=== PATIENT | female | born 1960 | race Caucasian/White ===

== ENCOUNTER 2019-04-11 21:19 | Inpatient (IN) | payer BC ==
--- NOTE | 2019-04-11 22:42 | PDOC ---
History of Present Illness - General Stated Complaint: PAIN Time Seen by Provider: 04/11/19 21:25 - History of Present Illness Initial Comments: Mikayla Morfin is a 58yo woman with a PMH of HTN, HLD, hypothyroidism, chronic back pain and sciatica, s/p multiple right knee and foot surgeries this spring ( December and January) who presents with severe cramping pains in her anterior right thigh, medial right thigh, and sciatica down her right lateral leg. She states that she had just been given permission to start full weight bearing by her orthopedic surgeon recently, and she has been trying to walk around the house as much as possible. She has not yet been able to start physical therapy. Yesterday, she started having muscle cramps in her anterior thigh and low back but tried to work through them. She took her usual oxycodone (extended release BID and immediate release Q4h), ibuprofen 800 and flexeril 7.5 with only slight improvement. Shortly afterwards, she noticed that her sciatica was "acting up" and she started having shooting pain down the lateral right leg. None of her usual home medications improved the pain significantly, and she says that it is so severe that it feels as though her leg is broken. She was unable to bear the pain anymore and presented to the ED for evaluation. She states that since arriving in the ED, she was trying to walk and pulled a muscle in the right groin; she now also has cramping pains down the medial right thigh as well. Ms Morfin states that she has been on the oxycodone sinec December, following her surgeries, and recently started the ibuprofen. She additionally takes flexeril and lyrica at home for pain. These have not helped over the past day. Despite the pain, she has been able to bear weight fully over the past day and has ambulated to the bathroom. She currently says that she is unable to move her leg because of pain. She denies any fall or injury prior to the onset of the muscle cramps. Before the pain started 2 days ago, she had been feeling in her normal state of marcia and denies any fevers, chills, injury, difficulty with voiding or bowel movements, numbness, or focal neurological symptoms. Past History - Past Medical History Allergies/Adverse Reactions: Allergies Allergy/AdvReac Type Severity Reaction Status Date / Time No Known Allergies Allergy Verified 04/11/19 23:06 Home Medications: Ambulatory Orders Levothyroxine [Synthroid -] 50 mcg PO DAILY 01/15/13 Simvastatin [Zocor -] 20 mg PO HS 01/15/13 Valsartan [Diovan] 160 mg PO DAILY 01/15/13 Pregabalin [Lyrica] 100 mg PO BID 03/05/14 Calcium Carb/Vitamin D3/Vit K1 [Calcium + D Soft Chewable Tab] 1 each PO DAILY 04/11/19 Cyanocobalamin/Folic AC/Vit B6 [Folbic Tablet] 1 each PO DAILY 04/11/19 Cyclobenzaprine HCl 10 mg PO PRN PRN 04/11/19 Ibuprofen/Famotidine [Duexis 800-26.6 mg Tablet] 1 each PO TID 04/11/19 Multivit with Minerals/Lutein [Pub Senior Vitamin Tablet] 1 each PO BID Oxycodone HCl 10 mg PO QID 04/11/19 Oxycodone Myristate [Xtampza ER] 18 mg PO BID 04/11/19 HTN: Yes Hypercholesterolemia: Yes Thyroid Disease: Yes (HYPO) - Suicide/Smoking/Psychosocial Hx Smoking Status: No Smoking History: Never smoked Have you smoked in the past 12 months: No Number of Cigarettes Smoked Daily: 0 Information on smoking cessation initiated: No Hx Alcohol Use: No Drug/Substance Use Hx: No Review of Systems - Review of Systems Comments:: General: No fevers, no chills, no weight or appetite change, no malaise HEENT: No changes in vision, no changes in hearing, no congestion, no sore throat CV: No chest pain, no palpitations, no LE edema Pulm: No SOB, no cough, no wheezing GI: No nausea or vomiting, no change in bowel habits, no melena : No frequency, no urgency, no dysuria Musc: See HPI Skin: No rash, no lesions, no erythema Endo: No excessive thirst, no heat/cold intolerance Heme: No unusual bruising or bleeding, no swollen glands Neuro: No syncope, no numbness/tingling, no focal weakness Vasc: No claudication Psych: No recent change in mood, no SI or HI *Physical Exam - Vital Signs Last Vital Signs Temp Pulse Resp BP Pulse Ox 99 F 64 19 155/79 100 04/11/19 21:35 04/11/19 21:35 04/11/19 21:35 04/11/19 21:35 04/11/19 21:35 - Physical Exam Comments: General: Comfortable, no acute distress HEENT: PERRL, EOMI, MMM, voice normal, normal neck ROM, no LAD Cards: RRR, no murmur appreciated Pulm: Comfortable on room air, clear to auscultation bilaterally Abd: Soft, nontender, nondistended Ext: Atraumatic. No pitting LE edema. Able to move b/l toes and ankles. Refuses to move legs at hip or knee due to pain. Well-healed surgical scars on her rt knee and Rt foot Vasc: Extremities WWP. Palpable radial and pedal pulses bilaterally Skin: Normal color, no rashes or lesions Neuro: A&Ox3, CN grossly intact, normal speech, sensory grossly intact and symmetric Psych: Mood appropriate to situation ED Treatment Course - LABORATORY CBC & Chemistry Diagram: 04/12/19 00:05 04/12/19 00:05 Medical Decision Making - Medical Decision Making 04/11/19 22:34 Mikayla Morfin is a 58yo woman with a PMH of HTN, HLD, hypothyroidism, chronic back pain and sciatica, s/p multiple right knee and foot surgeries this spring ( December and January), recently started walking and weight bearing, who presents with severe cramping pains in her anterior right thigh, medial right thigh, and sciatica down her right lateral leg that have not been improved by her home pain medications. She has been able to ambulate with difficulty. - Pt reports already taking a significant amount of pain medication at home - Will review pt's home medications - No injury, able to bear weight. No plans for imaging currently 04/11/19 23:13 - Pt's prescription history obtained by Dr Henry. Pt had recent prescriptions sent by a pain specialist. - Discussed goals of care w/ the entire ED team and patient. As she sees pain management, cannot give additional narcotic medications. Ms Morfin state understanding, willing to try non-narcotic medications. Unable to attempt ambulation currently due to pain - Reports recent swelling in her legs following surgery. Has not been on any anticoagulant. Will duplex BLE to evaluate for DVT - CBC, CMP for possible admission 04/12/19 00:34 - Signed out to Dr Jennings for the remainder of her ED care. Seen and discussed with Marily Henry and Collins. Louisa Esteban PGY2 *DC/Admit/Observation/Transfer Diagnosis at time of Disposition: Sciatica of right side Leg pain Qualifiers: Laterality: right Qualified Code(s): M79.604 - Pain in right leg - Referrals Referrals: Villa Naylor MD [Primary Care Provider] - - Patient Instructions - Post Discharge Activity
[2019-04-11] MEDS ORDERED: GABAPENTIN 300 MG CAPSULE (FP) PO ONE (23:12)
[2019-04-11] MEDS ORDERED: KETOROLAC TROMETHAMINE 30 MG/1 ML VIAL IVPUSH ONE (23:12)
[2019-04-11] MEDS ORDERED: predniSONE 20 MG TABLET (UD) PO ONE (23:12)
[2019-04-11] MEDS ORDERED: diazePAM CARPU-JECT 10 MG/2 ML DISP.SYRIN IVPUSH ONE (23:12)
[2019-04-11] MEDS ORDERED: predniSONE 20 MG TABLET (UD) ONE (23:43)
[2019-04-11] MEDS ORDERED: KETOROLAC TROMETHAMINE 30 MG/1 ML VIAL ONE (23:44)
[2019-04-11] MEDS ORDERED: GABAPENTIN 100 MG CAPSULE (FP) ONE (23:44)
--- NOTE | 2019-04-11 23:46 | PDOC ---
Documentation entered by Lang Li SCRIBE, acting as scribe for Paige Henry DO. Paige Henry DO: This documentation has been prepared by the Guillermo new Elijah, SCRIBE, under my direction and personally reviewed by me in its entirety. I confirm that the documentation accurately reflects all work , treatment, procedures, and medical decision making performed by me. Attending Attestation - Resident Resident Name: CarlitoLouisa - ED Attending Attestation I have performed the following: I have examined & evaluated the patient, The case was reviewed & discussed with the resident, I agree w/resident's findings & plan - HPI HPI: 04/11/19 23:20 Patient is a 58 year old female with a significant past medical history of HTN, HLD, Hypothyroidism, Arthritis and sciatica who presents to the ED s/p foot surgery (limited mobility for x4 months) and sciatica down the right leg for x2 days. The patient reports being given permission to bear full weight post surgery on leg when the pain onset as she has been trying to walk more around the house. Patient reports the pain as starting in the lower back and buttock, radiating to the lower leg. Patient felt unsafe to ambulate prompting her visit to the ED. Patient currently feels unsafe to go home Denies Fever, Nausea, Vomiting, Diarrhea, chills, cough and SOB Allergies: NKA Surgical History: Right Knee and Foot PCP: Dr. Naylor - Physicial Exam PE: 04/11/19 23:20 Agree with Resident's Exam - Medical Decision Making 04/11/19 23:44 58-year-old female with chronic pain now with worsening sciatica after attempting ambulation Due to patient's inability to ambulate and intractable pain despite multiple pain medications at home and a pain management program patient will be admitted to medical service for PT evaluation US to r/o dvt 04/11/19 23:45
[2019-04-12] MEDS ORDERED: diazePAM 5 MG TABLET PO ONE (00:22)
[2019-04-12] MEDS ORDERED: LIDOCAINE 5% TOPICAL PATCH TP ONE (00:22)
[2019-04-12] MEDS ORDERED: diazePAM 5 MG TABLET ONE (00:28)
[2019-04-12] MEDS ORDERED: LIDOCAINE 5% TOPICAL PATCH ONE (00:29)
[2019-04-12 00:33] LABS: BASO % 0.9 % (0-2.0); EOS % 1.7 % (0-4.5); HEMATOCRIT 33.3 % (32.4-45.2); HEMOGLOBIN 10.8 GM/dL (10.7-15.3); LYMPH % 21.9 % (8-40); MCH 28.3 pg (25.7-33.7); MCHC 32.4 g/dl (32.0-36.0); MEAN CELL VOLUME 87.2 fl (80-96); MEAN PLT VOLUME 9.9 fl (7.5-11.1); MONO % 5.9 % (3.8-10.2); NEUT % 69.6 % (42.8-82.8); PLATELET COUNT 217 K/MM3 (134-434); RBC 3.82 M/mm3 (3.60-5.2); RDW 14.7 % (11.6-15.6); WHITE BLOOD COUNT 4.3 K/mm3 (4.0-10.0)
[2019-04-12 02:40] LABS: ALBUMIN 3.4 g/dl (3.4-5.0); BILIRUBIN,TOTAL 0.4 mg/dL (0.2-1); BLOOD UREA NITROGEN 15.7 mg/dL (7-18); CALCIUM 8.8 mg/dL (8.5-10.1); CREATININE 1.2 mg/dL (0.55-1.3); POTASSIUM 4.3 mmol/L (3.5-5.1); TOT PROT 6.4 g/dl (6.4-8.2)
--- NOTE | 2019-04-12 03:01 | PDOC ---
*Physical Exam - Vital Signs Last Vital Signs Temp Pulse Resp BP Pulse Ox 99 F 64 19 155/79 100 04/11/19 21:35 04/11/19 21:35 04/11/19 21:35 04/11/19 21:35 04/11/19 21:35 ED Treatment Course - LABORATORY CBC & Chemistry Diagram: 04/12/19 00:05 04/12/19 01:55 - ADDITIONAL ORDERS Additional order review: Laboratory Results 04/12/19 04/12/19 01:55 00:05 Sodium 133 L Cancelled Potassium 4.3 Cancelled Chloride 98 Cancelled Carbon Dioxide 29 Cancelled Anion Gap 6 L Cancelled BUN 15.7 Cancelled Creatinine 1.2 Cancelled Est GFR (CKD-EPI)AfAm 57.69 Cancelled Est GFR (CKD-EPI)NonAf 49.78 Cancelled Random Glucose 103 Cancelled Calcium 8.8 Cancelled Total Bilirubin 0.4 Cancelled AST 18 Cancelled ALT 19 Cancelled Alkaline Phosphatase 128 H Cancelled Total Protein 6.4 Cancelled Albumin 3.4 Cancelled 04/12/19 00:05 RBC 3.82 MCV 87.2 MCHC 32.4 RDW 14.7 MPV 9.9 Neutrophils % 69.6 D Lymphocytes % 21.9 D Monocytes % 5.9 Eosinophils % 1.7 Basophils % 0.9 - Medications Given in the ED: ED Medications Discontinued Medications Generic Name Dose Route Start Last Admin Trade Name Jean Marieq PRN Reason Stop Dose Admin Diazepam 5 mg 04/11/19 23:12 04/12/19 00:55 Valium Injection - IVPUSH 04/11/19 23:13 Not Given ONCE ONE Diazepam 5 mg 04/12/19 00:22 04/12/19 00:40 Valium - PO 04/12/19 00:23 5 mg ONCE ONE Administration Gabapentin 300 mg 04/11/19 23:12 04/12/19 00:08 Neurontin - PO 04/11/19 23:13 300 mg ONCE ONE Administration Ketorolac Tromethamine 30 mg 04/11/19 23:12 04/12/19 00:08 Toradol Injection - IVPUSH 04/11/19 23:13 30 mg ONCE ONE Administration Lidocaine 1 patch 04/12/19 00:22 04/12/19 00:40 Lidoderm Patch - TP 04/12/19 00:23 1 patch ONCE ONE Administration Prednisone 40 mg 04/11/19 23:12 04/12/19 00:08 Deltasone - PO 04/11/19 23:13 40 mg ONCE ONE Administration Medical Decision Making - Medical Decision Making Pt was signed out to me by resident Dr. Esteban, who explained the presentation, ED course, any pending results, and needed interventions. Pending results include US of b/l LE and CMP. Pt is currently stable and is lying comfortably. Pts pain improved after interventions (toradol, prednisone, gabapentin, lidocaine, valium), but pt still non-ambulatory. Labs WNL. Paging hospitalist team for admission. 04/12/19 03:00 Pt admitted to hospitalist team (Dr. Lambert covering for Dr. Naylor). Providing pt 1 g IV ofirmev. Consults placed for otho and PT. 04/12/19 04:36 *DC/Admit/Observation/Transfer Diagnosis at time of Disposition: Sciatica of right side, Decreased ambulation status Leg pain Qualifiers: Laterality: right Qualified Code(s): M79.604 - Pain in right leg - Discharge Dispostion Condition at time of disposition: Stable Decision to Admit order: Yes Decision to Admit order Date/Time: Decision to Admit Order Category Date Time Status Decision to Admit to Hospital Routine Admission 04/12/19 02:59 Ordered - Referrals Referrals: Villa Naylor MD [Primary Care Provider] - - Patient Instructions - Post Discharge Activity
[2019-04-12] MEDS ORDERED: ACETAMINOPHEN 1000 MG/100 ML VIAL (NON FORMULARY) IVPB ONE (04:28)
--- NOTE | 2019-04-12 05:34 | HP ---
CHIEF COMPLAINT: Chronic pain with worsening sciatica pain, Right leg pain PCP: Dr. Lambert HISTORY OF PRESENT ILLNESS: 58 year female with a PMH of HTN, HLD, hypothyroidism, chronic back pain and sciatica, s/p right foot surgery in December , arrived to ED for severe cramping pains in her right anterior and medial thigh , and sciatica down her right lateral leg. Since, post surgery in right foot she started full weight bearing recently, and she has been trying to walk around the house as much as possible. Yesterday, pain started with muscle cramps right anterior thigh and low back (took oxycodonn, ibuprofen and flexeril) with some improvement. After that her sciatica pain got worse causing pain down lateral right leg. Pain got so severe that she came ED for evaluation. She currently says that she is unable to move her leg because of pain. Patient denies any fall , no acute fevers, chills, injury, numbness noted. ER course was notable for: (1) given non-narcotic pain medication, ( seeing pain management) (2) duplex BLE evaluate for DVT (3) Recent Travel: NO PAST MEDICAL HISTORY: HTN, HLD, Hypothyrodism, Arthritis and sciatica pain PAST SURGICAL HISTORY: s/p multiple righ foot sx, b/l knee, and b/l hip Social History: Smoking:no Alcohol: social drink Drugs: no Allergies: NKA No Known Allergies Allergy (Verified 04/11/19 23:06) HOME MEDICATIONS: Home Medications Medication Instructions Recorded Levothyroxine [Synthroid -] 50 mcg PO DAILY 01/15/13 Simvastatin [Zocor -] 20 mg PO HS 01/15/13 Valsartan [Diovan] 160 mg PO DAILY 01/15/13 Pregabalin [Lyrica] 100 mg PO BID 03/05/14 Calcium Carb/Vitamin D3/Vit K1 1 each PO DAILY 04/11/19 [Calcium + D Soft Chewable Tab] Cyanocobalamin/Folic AC/Vit B6 1 each PO DAILY 04/11/19 [Folbic Tablet] Cyclobenzaprine HCl 10 mg PO PRN PRN 04/11/19 Ibuprofen/Famotidine [Duexis 1 each PO TID 04/11/19 800-26.6 mg Tablet] Multivit with Minerals/Lutein [Pub 1 each PO BID 04/11/19 Senior Vitamin Tablet] Oxycodone HCl 10 mg PO QID 04/11/19 Oxycodone Myristate [Xtampza ER] 18 mg PO BID 04/11/19 REVIEW OF SYSTEMS General: No fevers, no chills, no weight or appetite change, no malaise HEENT: No changes in vision, no changes in hearing, no congestion, no sore throat Cardio: No chest pain, no palpitations, no LE edema Resp: No SOB, no cough, no wheezing GI: No nausea or vomiting, no change in bowel habits : No frequency, no urgency, no dysuria Musc: sever pain in right leg, difficult ambulating Skin: No rash, no lesions, no erythema Neuro: No syncope, no numbness/tingling, no focal weakness Vasc: No claudication Psych: No recent change in mood PHYSICAL EXAMINATION Vital Signs - 24 hr 04/11/19 04/11/19 04/12/19 21:34 21:35 03:10 Temperature 98.2 F 99 F 97.8 F Pulse Rate 63 Pulse Rate [ 64 70 Right Radial] Respiratory 18 19 Rate Blood Pressure 158/77 Blood Pressure 155/79 156/90 [Left Arm] O2 Sat by Pulse 100 100 98 Oximetry (%) GENERAL: awake,alert, comfortable HEENT: NC/AT, EOMI, PERRLA NECK: Normal range of motion, supple without lymphadenopathy, JVD, or masses. LUNGS: Breath sounds equal, clear to auscultation bilaterally. No wheezes, and no crackles. HEART: Regular rate and rhythm, normal S1 and S2 without murmur, rub or gallop. ABDOMEN: Soft, nontender, not distended, normoactive bowel sounds, no guarding, no rebound, no masses. Ext: Able to move b/l toes and ankles. Refuses to move legs due to increase pain , healed surgical scars on her right knee and Right foot NEUROLOGICAL: Cranial nerves II-XII intact. Normal speech PSYCHIATRIC: Cooperative. Good eye contact. Appropriate mood and affect. SKIN: Warm, dry, normal turgor, no rashes Laboratory Results - last 24 hr 04/12/19 04/12/19 04/12/19 00:05 00:05 01:55 WBC 4.3 RBC 3.82 Hgb 10.8 Hct 33.3 MCV 87.2 MCH 28.3 MCHC 32.4 RDW 14.7 Plt Count 217 MPV 9.9 Absolute Neuts (auto) 3.0 Neutrophils % 69.6 D Lymphocytes % 21.9 D Monocytes % 5.9 Eosinophils % 1.7 Basophils % 0.9 Nucleated RBC % 0 Sodium Cancelled 133 L Potassium Cancelled 4.3 Chloride Cancelled 98 Carbon Dioxide Cancelled 29 Anion Gap Cancelled 6 L BUN Cancelled 15.7 Creatinine Cancelled 1.2 Est GFR (CKD-EPI)AfAm Cancelled 57.69 Est GFR (CKD-EPI)NonAf Cancelled 49.78 Random Glucose Cancelled 103 Calcium Cancelled 8.8 Total Bilirubin Cancelled 0.4 AST Cancelled 18 ALT Cancelled 19 Alkaline Phosphatase Cancelled 128 H Total Protein Cancelled 6.4 Albumin Cancelled 3.4 ASSESSMENT/PLAN: 58yo woman with a PMH of HTN, HLD, hypothyroidism, chronic back pain and sciatica, s/p multiple right knee and foot surgeries present to ED due to severe cramping pains right anterior, medial thigh and sciatica down her right lateral leg, difficulty ambulating - In ED given (toradol, prednisone, gabapentin, lidocaine, valium), but pt still non-ambulatory. - 1 g IV ofirmev - Pending US of b/l LE - follow up pain management consult and othro - PT/OT evaluation HTN - continue with Valsartan - monitor BP closely HLD - continue with zocor - dietary restriction Hypothyroidism - continue with synthroid - follow up TSH level Problem List - Problem (1) Leg pain Assessment/Plan: 58yo woman chronic back pain and sciatica, s/p multiple right knee and foot surgeries present to ED due to severe cramping pains right anterior, medial thigh and sciatica down her right lateral leg, difficulty ambulating - In ED given (toradol, prednisone, gabapentin, lidocaine, valium), but pt still non-ambulatory. - 1 g IV ofirmev - Pending US of b/l LE - follow up pain management consult and othro - PT/OT evaluation Code(s): M79.606 - PAIN IN LEG, UNSPECIFIED Qualifiers: Laterality: right Qualified Code(s): M79.604 - Pain in right leg (2) Sciatica of right side Assessment/Plan: 58yo woman chronic back pain and sciatica, s/p multiple right knee and foot surgeries present to ED due to severe cramping pains right anterior, medial thigh and sciatica down her right lateral leg, difficulty ambulating - In ED given (toradol, prednisone, gabapentin, lidocaine, valium), but pt still non-ambulatory. - 1 g IV ofirmev - Pending US of b/l LE - follow up pain management consult and othro - PT/OT evaluation Code(s): M54.31 - SCIATICA, RIGHT SIDE (3) Decreased ambulation status Code(s): Z74.09 - OTHER REDUCED MOBILITY (4) HTN (hypertension) Assessment/Plan: HTN - continue with Valsartan - monitor BP closely Code(s): I10 - ESSENTIAL (PRIMARY) HYPERTENSION (5) Hyperlipemia Assessment/Plan: HLD - continue with zocor - dietary restriction Code(s): E78.5 - HYPERLIPIDEMIA, UNSPECIFIED (6) Hypothyroidism Assessment/Plan: Hypothyroidism - continue with synthroid - follow up TSH level Code(s): E03.9 - HYPOTHYROIDISM, UNSPECIFIED Visit type - Emergency Visit Emergency Visit: Yes ED Registration Date: 04/12/19 Care time: The patient presented to the Emergency Department on the above date and was hospitalized for further evaluation of their emergent condition. - New Patient This patient is new to me today: Yes Date on this admission: 04/12/19 - Critical Care Critical Care patient: No
[2019-04-12] MEDS ORDERED: ACETAMINOPHEN INJECTION 100 ML IVPB ONE (05:44)
[2019-04-12] MEDS: LEVOTHYROXINE NA 50 MCG TABLET (FP) PO SCH (07:05)
[2019-04-12] MEDS: MULTIVITAMINS THER W-MINERALS COMBO TABLET (FP) PO SCH (09:12)
[2019-04-12] MEDS: CALCIUM 500MG/VIT-D 200 UNITS COMBO TABLET (FP) PO SCH (09:12)
[2019-04-12] MEDS: PREGABALIN 100 MG CAPSULE PO SCH ×2 (09:12→22:06)
[2019-04-12] MEDS: VALSARTAN 160 MG TABLET (UD) PO SCH (09:12)
[2019-04-12] MEDS: CYCLOBENZAPRINE HCL 10 MG TABLET (FP) PO PRN (13:06)
--- NOTE | 2019-04-12 13:29 | PN ---
Progress Note, Physician Chief Complaint: Chronic Back pain History of Present Illness: Others' Prescriptions Patient Name: Mikayla Morfin Date: 1960 Address: [address] [place] [address] Sex: Female Rx Written Rx Dispensed Drug Quantity Days Supply Prescriber Name 04/04/2019 04/04/2019 oxycodone-acetaminophen 7.5-325 mg tablet 150 30 Chavez, Sulaiman [place] 03/07/2019 03/20/2019 xtampza er 18 mg capsule 60 30 Chavez, Sulaiman [place] 03/07/2019 03/07/2019 oxycodone-acetaminophen 7.5-325 mg tablet 150 30 Chavez, Sulaiman [place] 02/07/2019 02/13/2019 xtampza er 18 mg capsule 60 30 Chavez, Sulaiman [place] 02/07/2019 02/07/2019 oxycodone-acetaminophen 7.5-325 mg tablet 150 30 Chavez, Sulaiman [place] 10/25/2018 01/24/2019 lyrica 150 mg capsule 180 90 Jesus Sharp NAD in bed Pain much improved at bedside Had recent MRI done at [facility] of lumbar spine about a month ago - Current Medication List Current Medications: Active Medications Atorvastatin Calcium (Lipitor -) 10 mg PO HS [facility] Calcium Carbonate/Cholecalciferol (Os-Nick 500+D -) 1 tab PO DAILY [facility] Last Admin: 04/12/19 09:12 Dose: 1 tab Cyclobenzaprine HCl (Flexeril -) 10 mg PO Q12H PRN PRN Reason: MUSCLE SPASMS Last Admin: 04/12/19 13:06 Dose: 10 mg Levothyroxine Sodium (Synthroid -) 50 mcg PO DAILY@0700 [facility] Last Admin: 04/12/19 07:05 Dose: 50 mcg Miscellaneous (Lidoderm Patch Removal) 1 each MC DAILY@2200 [facility] Multivitamins/Minerals (Theragran-M) 1 each PO DAILY [facility] Last Admin: 04/12/19 09:12 Dose: 1 each Non-Formulary Medication (Cyanocobalamin/Folic Ac/Vit B6 [Folbic Tablet]) 1 each PO DAILY [facility] Pregabalin (Lyrica -) 100 mg PO BID [facility] Stop: 04/13/19 23:59 Last Admin: 04/12/19 09:12 Dose: 100 mg Valsartan (Diovan -) 160 mg PO DAILY [facility] Last Admin: 04/12/19 09:12 Dose: 160 mg - Objective Vital Signs: Vital Signs Temperature 98 F 04/12/19 09:23 Pulse Rate 78 04/12/19 09:23 Respiratory Rate 18 04/12/19 09:23 Blood Pressure 123/65 04/12/19 09:23 O2 Sat by Pulse Oximetry (%) 95 04/12/19 06:10 Constitutional: Yes: Well Nourished, No Distress, Calm, Obese Cardiovascular: Yes: Regular Rate and Rhythm Respiratory: Yes: Regular Gastrointestinal: Yes: Normal Bowel Sounds, Soft, Abdomen, Obese Musculoskeletal: Yes: Back Pain Extremities: Yes: WNL Edema: No Peripheral Pulses WNL: Yes Neurological: Yes: Alert, Oriented Psychiatric: Yes: Alert, Oriented Labs: CBC, BMP 04/12/19 00:05 04/12/19 01:55 Problem List - Problems (1) Morbid obesity Assessment/Plan: -RD consult Code(s): E66.01 - MORBID (SEVERE) OBESITY DUE TO EXCESS CALORIES (2) Decreased ambulation status Code(s): Z74.09 - OTHER REDUCED MOBILITY (3) Sciatica of right side Assessment/Plan: -Pain management consult -Neurology+ NS consult -Continue home meds -Add lidoderm patch -Physical therapy Code(s): M54.31 - SCIATICA, RIGHT SIDE
[2019-04-12] MEDS: oxyCODONE HCL 20 MG SUSTAINED ACTING TABLET PO SCH ×2 (13:40→22:06)
[2019-04-12] MEDS: oxyCODONE HCL 5 MG TABLET PO PRN ×3 (15:56→23:56)
[2019-04-12] MEDS: LIDOCAINE 5% TOPICAL PATCH TP SCH (18:11)
[2019-04-12] MEDS: ACETAMINOPHEN 325 MG TABLET (FP) PO PRN (20:04)
[2019-04-12] MEDS: ATORVASTATIN CA 10 MG TABLET (FP) PO SCH (22:06)
[2019-04-12] MEDS: LIDOCAINE PATCH REMOVAL MC SCH ×2 (22:10)
--- NOTE | 2019-04-12 23:51 | CONSULT ---
Consult - text type - Consultation Consultation Note: NEUROSURGERY CONSULTATION Mikayla Morfni is a 58 old female who has achief complaint of Chronic Low Back and lower extremity radicular pain with acute exacerbation. The patient describes an original injury in 1991 and extensive conservative efforts over the years with significant increase in her pain 6 years ago. She has had multiple rounds of Epidural Steroid injections and many sessions of Physical Therapy. She has tried a variety of medications and is currently on Oxycodone and Lyrica. She has had bilateral hip replacements as well as Orthopaedic procedures on her knees and Right ankle including 2 recent procedures, earlier this year. She recently developed severe exacerbation of her Low back pain and Right sided sciatica and was imaged with MRI in September at [facility]. The patient acutely deteriorated over the past few days and was brought into the ER at [facility] for evaluation with inability to ambulate. The patient was referred to [facility] by Dr. José Lambert who is covering for Dr. Villa Naylor, her Freight Adjuster and PCP for further evaluation and management. The patient has mechanical back pain with some aggravation from vibration and jostling such as riding in a car over a bumpy road, pot holes or rail road tracks. The patienthas aggravation of her radicular symptoms associated with Valsalvas maneuver. The patient walks better with a stooped posture such as pushing a shopping cart. MRI Lumbar spine from 2012 demonstrates Lumbar degenerative kyphosis with moderate to severe spondylosis with osteophytes, disc bulges and hypertrophic facets and ligamentum flavum. There is loss of disc height and Modic changes at multiple levels. hypertrophic facets and ligamentum flavum result in lateral recess stenosis. There is some coronal deformity noted as well. MRI from September 2018 is not available for review. Patient's will bring the CD in to be loaded into PACS. The patient describes severe limitations of activities of daily living and a poor quality of life. I described the potential role of injections, bracing, and Physical Therapy as well as medical management in detail. After review of the patients symptoms and imaging, the patient would likely benefit from decompression and stabilization in the Lumbar spine. I described the risks, benefits and alternativesof L2-S1 decompression, osteotomies, correction of deformity and interbody and posterior lateral arthrodesis with cages and pedicle screws in detail. I explained that the risks included, but were not limited to: , coma, paralysis, bleeding, infection, CSF leak possibly requiring spinal drainage or additional surgery, failure to fuse, failure to improve, instrumentation migration/malposition/malfunction and the need for additional surgery. I offered the patient the option to seek another opinion or another surgeon. All questions were answered. Informed consent was obtained. I outlined the anatomy, pathology, surgical approachesand potential complications. I will review the latest MRI and decide whether additional imaging is required and whether a modification of the surgical plan is warranted.The patient will contemplate her options and will get back to us with a final decision regarding surgery. 58 year female with a PMH of HTN, HLD, hypothyroidism, chronic back pain and sciatica, s/p right foot surgery in December, arrived to ED for severe cramping pains in her right anterior and medial thigh, and sciatica down her right lateral leg. Since, post surgery in right foot she started full weight bearing recently, and she has been trying to walk around the house as much as possible. Yesterday, pain started with muscle cramps right anterior thigh and low back (took oxycodonn, ibuprofen and flexeril) with some improvement. After that her sciatica pain got worse causing pain down lateral right leg. Pain got so severe that she came ED for evaluation. She currently says that she is unable to move her leg because of pain. Patient denies any fall , no acute fevers, chills, injury, numbness noted.
[2019-04-13] MEDS: CYCLOBENZAPRINE HCL 10 MG TABLET (FP) PO PRN ×2 (00:18→14:46)
[2019-04-13] MEDS: ACETAMINOPHEN 325 MG TABLET (FP) PO PRN ×5 (04:30→23:29)
[2019-04-13] MEDS: oxyCODONE HCL 5 MG TABLET PO PRN ×5 (04:30→23:29)
[2019-04-13] MEDS: LEVOTHYROXINE NA 50 MCG TABLET (FP) PO SCH (06:55)
[2019-04-13 07:31] LABS: HEMATOCRIT 28.9 % (32.4-45.2); HEMOGLOBIN 9.6 GM/dL (10.7-15.3); MCH 28.3 pg (25.7-33.7); MCHC 33.2 g/dl (32.0-36.0); MEAN CELL VOLUME 85.3 fl (80-96); MEAN PLT VOLUME 9.2 fl (7.5-11.1); PLATELET COUNT 212 K/MM3 (134-434); RBC 3.38 M/mm3 (3.60-5.2); RDW 14.8 % (11.6-15.6); WHITE BLOOD COUNT 5.8 K/mm3 (4.0-10.0)
[2019-04-13 08:27] LABS: BILIRUBIN,TOTAL 0.4 mg/dL (0.2-1); BLOOD UREA NITROGEN 16.6 mg/dL (7-18); CALCIUM 8.5 mg/dL (8.5-10.1); CREATININE 0.9 mg/dL (0.55-1.3); TOT PROT 5.5 g/dl (6.4-8.2)
[2019-04-13] MEDS: PREGABALIN 100 MG CAPSULE PO SCH ×2 (10:24→21:56)
[2019-04-13] MEDS: oxyCODONE HCL 20 MG SUSTAINED ACTING TABLET PO SCH ×2 (10:24→21:56)
[2019-04-13] MEDS: CALCIUM 500MG/VIT-D 200 UNITS COMBO TABLET (FP) PO SCH (10:29)
[2019-04-13] MEDS: MULTIVITAMINS THER W-MINERALS COMBO TABLET (FP) PO SCH (10:29)
[2019-04-13] MEDS: VALSARTAN 160 MG TABLET (UD) PO SCH (10:29)
[2019-04-13] MEDS: LIDOCAINE 5% TOPICAL PATCH TP SCH (10:29)
--- NOTE | 2019-04-13 11:08 | CON.ORTH ---
Consult Reason for Consultation:: ortho eval- LBP - Alcohol/Substance Use Hx Alcohol Use: No - Smoking History Smoking history: Never smoked Have you smoked in the past 12 months: No Aproximately how many cigarettes per day: 0 Home Medications - Allergies Allergies/Adverse Reactions: Allergies Allergy/AdvReac Type Severity Reaction Status Date / Time No Known Allergies Allergy Verified 04/11/19 23:06 - Home Medications Home Medications: Ambulatory Orders Levothyroxine [Synthroid -] 50 mcg PO DAILY 01/15/13 Simvastatin [Zocor -] 20 mg PO HS 01/15/13 Valsartan [Diovan] 160 mg PO DAILY 01/15/13 Pregabalin [Lyrica] 100 mg PO BID 03/05/14 Calcium Carb/Vitamin D3/Vit K1 [Calcium + D Soft Chewable Tab] 1 each PO DAILY 04/11/19 Cyanocobalamin/Folic AC/Vit B6 [Folbic Tablet] 1 each PO DAILY 04/11/19 Cyclobenzaprine HCl 10 mg PO PRN PRN 04/11/19 Ibuprofen/Famotidine [Duexis 800-26.6 mg Tablet] 1 each PO TID 04/11/19 Multivit with Minerals/Lutein [Pub Senior Vitamin Tablet] 1 each PO BID Oxycodone HCl 10 mg PO QID 04/11/19 Oxycodone Myristate [Xtampza ER] 18 mg PO BID 04/11/19 Physical Exam for Ortho Vital Signs: Vital Signs Temperature 98.4 F 04/13/19 06:00 Pulse Rate 67 04/13/19 06:00 Respiratory Rate 18 04/13/19 06:00 Blood Pressure 145/78 04/13/19 06:00 O2 Sat by Pulse Oximetry (%) 97 04/12/19 21:00 Labs: CBC, BMP 04/13/19 06:36 04/13/19 06:36 - Lower Extremity Hip: Yes: Exam WNL Knee: Yes: Exam WNL Imaging - Results MRI: Report Reviewed Assessment/Plan 58 year female with a PMH of HTN, HLD, hypothyroidism, chronic back pain and sciatica, s/p right foot surgery in December, arrived to ED for severe cramping pains in her right anterior and medial thigh, and sciatica down her right lateral leg. Since, post surgery in right foot she started full weight bearing recently, and she has been trying to walk around the house as much as possible. Yesterday, pain started with muscle cramps right anterior thigh and low back (took oxycodone, ibuprofen and flexeril) with some improvement. After that her sciatica pain got worse causing pain down lateral right leg. Pain got so severe that she came ED for evaluation. She currently says that she is unable to move her leg because of pain. Patient denies any fall , no acute fevers, chills, injury, numbness noted. Pt is s/p b/l THR and b/l TKR done elsewhere. s/p foot surgery by Dr. Mathias 3 months ago. Has been cleared for full WBAT a/p - LS spine radiculopathy, s/p b/l THR and TKR Orthopedically stable f/u Dr. Pihcardo f/u pain management PT eval, wbat NTD Orthopedically re-consult prn d/w Dr. Philip
--- NOTE | 2019-04-13 13:06 | PN ---
Progress Note, Physician Chief Complaint: Chronic Back pain History of Present Illness: Others' Prescriptions Patient Name: Mikayla Morfin Date: 1960 Address: [address] [place] [address] Sex: Female Rx Written Rx Dispensed Drug Quantity Days Supply Prescriber Name 04/04/2019 04/04/2019 oxycodone-acetaminophen 7.5-325 mg tablet 150 30 Chavez, Sulaiman Carlisle 03/07/2019 03/20/2019 xtampza er 18 mg capsule 60 30 Chavez, Sulaiman Carlisle 03/07/2019 03/07/2019 oxycodone-acetaminophen 7.5-325 mg tablet 150 30 Chavez, Sulaiman Carlisle 02/07/2019 02/13/2019 xtampza er 18 mg capsule 60 30 Chavez, Sulaiman Carlisle 02/07/2019 02/07/2019 oxycodone-acetaminophen 7.5-325 mg tablet 150 30 Chavez, Sulaiman Carlisle 10/25/2018 01/24/2019 lyrica 150 mg capsule 180 90 Jesus Sharp NAD in bed Pain much improved at bedside Had recent MRI done at [facility] radiology of lumbar spine in september Seen by NS, recommends repeat CT and/or MRI lumbar spine - Current Medication List Current Medications: Active Medications Acetaminophen (Tylenol -) 650 mg PO Q4H PRN PRN Reason: FEVER Last Admin: 04/13/19 09:02 Dose: 650 mg Atorvastatin Calcium (Lipitor -) 10 mg PO HS [facility] Last Admin: 04/12/19 22:06 Dose: 10 mg Calcium Carbonate/Cholecalciferol (Os-Nick 500+D -) 1 tab PO DAILY [facility] Last Admin: 04/13/19 10:29 Dose: 1 tab Cyclobenzaprine HCl (Flexeril -) 10 mg PO Q12H PRN PRN Reason: MUSCLE SPASMS Last Admin: 04/13/19 00:18 Dose: 10 mg Levothyroxine Sodium (Synthroid -) 50 mcg PO DAILY@0700 [facility] Last Admin: 04/13/19 06:55 Dose: 50 mcg Lidocaine (Lidoderm Patch -) 1 patch TP DAILY [facility] Last Admin: 04/13/19 10:29 Dose: 1 patch Miscellaneous (Lidoderm Patch Removal) 1 each MC DAILY@2200 [facility] Last Admin: 04/12/19 22:10 Dose: Not Given Miscellaneous (Lidoderm Patch Removal) 1 each MC DAILY@2200 [facility] Last Admin: 04/12/19 22:10 Dose: Not Given Multivitamins/Minerals (Theragran-M) 1 each PO DAILY [facility] Last Admin: 04/13/19 10:29 Dose: 1 each Non-Formulary Medication (Cyanocobalamin/Folic Ac/Vit B6 [Folbic Tablet]) 1 each PO DAILY [facility] Oxycodone HCl (Roxicodone -) 5 mg PO Q4H PRN PRN Reason: PAIN LEVEL 6-10 Last Admin: 04/13/19 09:00 Dose: 5 mg Oxycodone HCl (Oxycontin -) 20 mg PO BID [facility] Last Admin: 04/13/19 10:24 Dose: 20 mg Pregabalin (Lyrica -) 100 mg PO BID [facility] Stop: 04/13/19 23:59 Last Admin: 04/13/19 10:24 Dose: 100 mg Valsartan (Diovan -) 160 mg PO DAILY [facility] Last Admin: 04/13/19 10:29 Dose: 160 mg - Objective Vital Signs: Vital Signs Temperature 98.4 F 04/13/19 06:00 Pulse Rate 67 04/13/19 06:00 Respiratory Rate 18 04/13/19 06:00 Blood Pressure 145/78 04/13/19 06:00 O2 Sat by Pulse Oximetry (%) 97 04/12/19 21:00 Constitutional: Yes: Well Nourished, No Distress, Calm, Obese Cardiovascular: Yes: Regular Rate and Rhythm Respiratory: Yes: Regular Gastrointestinal: Yes: Normal Bowel Sounds, Soft, Abdomen, Obese Musculoskeletal: Yes: Back Pain, Muscle Weakness Extremities: Yes: WNL Edema: No Peripheral Pulses WNL: Yes Neurological: Yes: Alert, Oriented Psychiatric: Yes: Alert, Oriented Labs: CBC, BMP 04/13/19 06:36 04/13/19 06:36 Problem List - Problems (1) Morbid obesity Assessment/Plan: -RD consult Code(s): E66.01 - MORBID (SEVERE) OBESITY DUE TO EXCESS CALORIES (2) Decreased ambulation status Code(s): Z74.09 - OTHER REDUCED MOBILITY (3) Sciatica of right side Assessment/Plan: -Pain management consult -Neurology+ NS consult -Continue home meds -Added lidoderm patch -Physical therapy -CT lumbar spine -Increase oxycodone to 10 mg po Q4h PRN Code(s): M54.31 - SCIATICA, RIGHT SIDE Assessment/Plan see problem lsit DVT ppx
[2019-04-13 16:16] VITALS: BMI 40.5
[2019-04-13] MEDS: HEPARIN NA (PORCINE) 5,000 UNITS/ML 1ML VIAL SQ SCH (21:56)
[2019-04-13] MEDS: ATORVASTATIN CA 10 MG TABLET (FP) PO SCH (21:56)
[2019-04-13] MEDS: LIDOCAINE PATCH REMOVAL MC SCH ×2 (21:57)
[2019-04-14] MEDS: oxyCODONE HCL 5 MG TABLET PO PRN ×4 (05:05→22:46)
[2019-04-14] MEDS: ACETAMINOPHEN 325 MG TABLET (FP) PO PRN ×3 (05:05→17:33)
[2019-04-14] MEDS: LEVOTHYROXINE NA 50 MCG TABLET (FP) PO SCH (06:15)
[2019-04-14] MEDS: oxyCODONE HCL 20 MG SUSTAINED ACTING TABLET PO SCH ×2 (09:16→21:58)
[2019-04-14] MEDS: LIDOCAINE 5% TOPICAL PATCH TP SCH (09:17)
[2019-04-14] MEDS: MULTIVITAMINS THER W-MINERALS COMBO TABLET (FP) PO SCH (09:17)
[2019-04-14] MEDS: CALCIUM 500MG/VIT-D 200 UNITS COMBO TABLET (FP) PO SCH (09:18)
[2019-04-14] MEDS: HEPARIN NA (PORCINE) 5,000 UNITS/ML 1ML VIAL SQ SCH ×2 (09:18→21:58)
[2019-04-14] MEDS: VALSARTAN 160 MG TABLET (UD) PO SCH (09:18)
[2019-04-14] MEDS: CYCLOBENZAPRINE HCL 10 MG TABLET (FP) PO PRN ×2 (09:21→21:59)
--- NOTE | 2019-04-14 10:55 | PN ---
Progress Note, Physician Chief Complaint: Chronic Back pain History of Present Illness: Others' Prescriptions Patient Name: Mikayla Morfin Date: 1960 Address: [address] [place] [address] Sex: Female Rx Written Rx Dispensed Drug Quantity Days Supply Prescriber Name 04/04/2019 04/04/2019 oxycodone-acetaminophen 7.5-325 mg tablet 150 30 Chavez, Sulaiman Carlisle 03/07/2019 03/20/2019 xtampza er 18 mg capsule 60 30 Chavez, Sulaiman Carlisle 03/07/2019 03/07/2019 oxycodone-acetaminophen 7.5-325 mg tablet 150 30 Chavez, Sulaiman Carlisle 02/07/2019 02/13/2019 xtampza er 18 mg capsule 60 30 Chavez, Sulaiman Carlisle 02/07/2019 02/07/2019 oxycodone-acetaminophen 7.5-325 mg tablet 150 30 Chavez, Sulaiman Carlisle 10/25/2018 01/24/2019 lyrica 150 mg capsule 180 90 Jesus Sharp NAD in bed Pain much improved at bedside Had recent MRI done at [facility] radiology of lumbar spine in september Seen by NS, recommends repeat CT and/or MRI lumbar spine Awaiting lumbar CT - Current Medication List Current Medications: Active Medications Acetaminophen (Tylenol -) 650 mg PO Q4H PRN PRN Reason: FEVER Last Admin: 04/14/19 05:05 Dose: 650 mg Atorvastatin Calcium (Lipitor -) 10 mg PO HS [facility] Last Admin: 04/13/19 21:56 Dose: 10 mg Calcium Carbonate/Cholecalciferol (Os-Nick 500+D -) 1 tab PO DAILY [facility] Last Admin: 04/14/19 09:18 Dose: 1 tab Cyclobenzaprine HCl (Flexeril -) 10 mg PO Q12H PRN PRN Reason: MUSCLE SPASMS Last Admin: 04/14/19 09:21 Dose: 10 mg Heparin Sodium (Porcine) (Heparin -) 5,000 unit SQ BID [facility] Last Admin: 04/14/19 09:18 Dose: 5,000 unit Levothyroxine Sodium (Synthroid -) 50 mcg PO DAILY@0700 [facility] Last Admin: 04/14/19 06:15 Dose: 50 mcg Lidocaine (Lidoderm Patch -) 1 patch TP DAILY [facility] Last Admin: 04/14/19 09:17 Dose: 1 patch Miscellaneous (Lidoderm Patch Removal) 1 each MC DAILY@2200 [facility] Last Admin: 04/13/19 21:57 Dose: 1 each Miscellaneous (Lidoderm Patch Removal) 1 each MC DAILY@2200 [facility] Last Admin: 04/13/19 21:57 Dose: 1 each Multivitamins/Minerals (Theragran-M) 1 each PO DAILY [facility] Last Admin: 04/14/19 09:17 Dose: 1 each Non-Formulary Medication (Cyanocobalamin/Folic Ac/Vit B6 [Folbic Tablet]) 1 each PO DAILY [facility] Oxycodone HCl (Oxycontin -) 20 mg PO BID [facility] Last Admin: 04/14/19 09:16 Dose: 20 mg Oxycodone HCl (Roxicodone -) 10 mg PO Q4H PRN PRN Reason: PAIN LEVEL 6-10 Last Admin: 04/14/19 05:05 Dose: 10 mg Valsartan (Diovan -) 160 mg PO DAILY [facility] Last Admin: 04/14/19 09:18 Dose: 160 mg - Objective Vital Signs: Vital Signs Temperature 98.0 F 04/14/19 05:57 Pulse Rate 65 04/14/19 05:57 Respiratory Rate 18 04/14/19 05:57 Blood Pressure 129/88 04/14/19 05:57 O2 Sat by Pulse Oximetry (%) 97 04/13/19 21:00 Constitutional: Yes: Well Nourished, No Distress, Calm, Obese Cardiovascular: Yes: Regular Rate and Rhythm Respiratory: Yes: Regular Gastrointestinal: Yes: Normal Bowel Sounds, Soft, Abdomen, Obese Genitourinary: Yes: WNL Musculoskeletal: Yes: Back Pain Extremities: Yes: WNL Edema: No Peripheral Pulses WNL: Yes Neurological: Yes: Alert, Oriented Psychiatric: Yes: Alert, Oriented Labs: CBC, BMP 04/13/19 06:36 04/13/19 06:36 Problem List - Problems (1) Morbid obesity Assessment/Plan: -RD consult Code(s): E66.01 - MORBID (SEVERE) OBESITY DUE TO EXCESS CALORIES (2) Decreased ambulation status Code(s): Z74.09 - OTHER REDUCED MOBILITY (3) Sciatica of right side Assessment/Plan: -Pain management consult -Neurology+ NS consult -Continue home meds -Added lidoderm patch -Physical therapy -CT lumbar spine -Increase oxycodone to 10 mg po Q4h PRN Code(s): M54.31 - SCIATICA, RIGHT SIDE Assessment/Plan see problem lsit DVT ppx
[2019-04-14] MEDS: LIDOCAINE PATCH REMOVAL MC SCH ×2 (21:58→21:59)
[2019-04-14] MEDS: ATORVASTATIN CA 10 MG TABLET (FP) PO SCH (21:59)
[2019-04-14] MEDS: [UNRECOGNIZED DRUG - OTHER] PO SCH ×2 (22:48→22:49)
[2019-04-14] MEDS: CYANOCOBALAMIN PO SCH ×2 (22:48→22:49)
[2019-04-14] MEDS: FOLIC AC PO SCH ×2 (22:48→22:49)
[2019-04-14] MEDS: VIT B6 PO SCH ×2 (22:48→22:49)
--- NOTE | 2019-04-15 00:04 | CONSULT ---
Consult Consult Specialty:: endocrine Referred by:: emily yuen Reason for Consultation:: hypothyroidism - History of Present Illness Chief Complaint: back pain unable to walk from the pain History of Present Illness: 58 year old female w past medical history of hypothyroidism,OA, HTN, HLD, who presents to the ED s/p foot surgery (limited mobility for x4 months) and sciatica down the right leg . The patient reports being given permission to bear full weight post surgery on leg when the pain onset as she has been trying to w. Patient reports the pain as starting in the lower back and buttock, she has pain so sever she was unble to move from bed to chair. - Alcohol/Substance Use Hx Alcohol Use: No - Smoking History Smoking history: Never smoked Have you smoked in the past 12 months: No Aproximately how many cigarettes per day: 0 Home Medications - Allergies Allergies/Adverse Reactions: Allergies Allergy/AdvReac Type Severity Reaction Status Date / Time No Known Allergies Allergy Verified 04/11/19 23:06 - Home Medications Home Medications: Ambulatory Orders Levothyroxine [Synthroid -] 50 mcg PO DAILY 01/15/13 Simvastatin [Zocor -] 20 mg PO HS 01/15/13 Valsartan [Diovan] 160 mg PO DAILY 01/15/13 Pregabalin [Lyrica] 100 mg PO BID 03/05/14 Calcium Carb/Vitamin D3/Vit K1 [Calcium + D Soft Chewable Tab] 1 each PO DAILY 04/11/19 Cyanocobalamin/Folic AC/Vit B6 [Folbic Tablet] 1 each PO DAILY 04/11/19 Cyclobenzaprine HCl 10 mg PO PRN PRN 04/11/19 Ibuprofen/Famotidine [Duexis 800-26.6 mg Tablet] 1 each PO TID 04/11/19 Multivit with Minerals/Lutein [Pub Senior Vitamin Tablet] 1 each PO BID Oxycodone HCl 10 mg PO QID 04/11/19 Oxycodone Myristate [Xtampza ER] 18 mg PO BID 04/11/19 Review of Systems - Review of Systems Constitutional: reports: Lethargy, Weakness HENT: reports: No Symptoms Neck: reports: No Symptoms Cardiovascular: reports: Shortness of Breath Respiratory: reports: Exercise Intolerance, SOB on Exertion Gastrointestinal: reports: Constipation Genitourinary: reports: No Symptoms Breasts: reports: No Symptoms Reported Musculoskeletal: reports: Joint Pain, Joint Swelling, Muscle Pain, Muscle Cramps , Muscle Weakness Physical Exam Vital Signs: Vital Signs Temperature 98.2 F 04/14/19 18:00 Pulse Rate 65 04/14/19 18:00 Respiratory Rate 18 04/14/19 18:00 Blood Pressure 145/80 04/14/19 18:00 O2 Sat by Pulse Oximetry (%) 97 04/14/19 09:00 Constitutional: Yes: Anxious Eyes: Yes: EOM Intact HENT: Yes: Normocephalic Neck: Yes: Trachea Midline Cardiovascular: Yes: Regular Rate and Rhythm Respiratory: Yes: CTA Bilaterally Gastrointestinal: Yes: Normal Bowel Sounds ...Rectal Exam: Yes: Deferred Renal/: Yes: WNL Musculoskeletal: Yes: Joint Swelling, Muscle Pain, Muscle Weakness Extremities: Yes: WNL Edema: No Neurological: Yes: Alert, Oriented Labs: CBC, BMP 04/13/19 06:36 04/13/19 06:36 Problem List - Problems (1) Decreased ambulation status Code(s): Z74.09 - OTHER REDUCED MOBILITY (2) HTN (hypertension) Code(s): I10 - ESSENTIAL (PRIMARY) HYPERTENSION (3) Hyperlipemia Code(s): E78.5 - HYPERLIPIDEMIA, UNSPECIFIED (4) Hypothyroidism Code(s): E03.9 - HYPOTHYROIDISM, UNSPECIFIED (5) Leg pain Code(s): M79.606 - PAIN IN LEG, UNSPECIFIED Qualifiers: Laterality: right Qualified Code(s): M79.604 - Pain in right leg (6) Morbid obesity Code(s): E66.01 - MORBID (SEVERE) OBESITY DUE TO EXCESS CALORIES (7) Sciatica of right side Code(s): M54.31 - SCIATICA, RIGHT SIDE Assessment/Plan Current Active Problems Decreased ambulation status (Acute) HTN (hypertension) (Acute) Hyperlipemia (Acute) Hypothyroidism (Acute) Leg pain (Acute) Morbid obesity (Acute) Sciatica of right side (Acute) Laboratory Tests 04/13/19 04/13/19 06:36 06:36 WBC 5.8 RBC 3.38 L Hgb 9.6 L Hct 28.9 L MCV 85.3 MCH 28.3 MCHC 33.2 RDW 14.8 Plt Count 212 Sodium 133 L Potassium 4.0 Chloride 99 Carbon Dioxide 30 Anion Gap 4 L BUN 16.6 Creatinine 0.9 Est GFR (CKD-EPI)AfAm 81.69 TSH 1.46 plan: continue synthroid dose neurosurgery opinion appreciatied pain management
[2019-04-15] MEDS ORDERED: PT OWN MED DRAWER 7, Y5N ONE (05:41)
[2019-04-15] MEDS: LEVOTHYROXINE NA 50 MCG TABLET (FP) PO SCH (06:19)
[2019-04-15] MEDS: oxyCODONE HCL 5 MG TABLET PO PRN ×2 (06:19→11:09)
--- NOTE | 2019-04-15 10:07 | DS ---
Physical Examination Vital Signs: Vital Signs Temperature 98.0 F 04/15/19 06:00 Pulse Rate 62 04/15/19 06:00 Respiratory Rate 20 04/15/19 06:00 Blood Pressure 149/89 04/15/19 06:00 O2 Sat by Pulse Oximetry (%) 98 04/14/19 21:00 Findings/Remarks: 58 year female with a PMH of HTN, HLD, hypothyroidism, chronic back pain and sciatica, s/p right foot surgery in December, arrived to ED for severe cramping pains in her right anterior and medial thigh, and sciatica down her right lateral leg. Since, post surgery in right foot she started full weight bearing recently, and she has been trying to walk around the house as much as possible. Yesterday, pain started with muscle cramps right anterior thigh and low back (took oxycodonn, ibuprofen and flexeril) with some improvement. After that her sciatica pain got worse causing pain down lateral right leg. Pain got so severe that she came ED for evaluation. She currently says that she is unable to move her leg because of pain. Patient denies any fall , no acute fevers, chills, injury, numbness noted. Constitutional: Yes: Well Nourished, No Distress, Calm, Obese Cardiovascular: Yes: Regular Rate and Rhythm Respiratory: Yes: Regular Gastrointestinal: Yes: Normal Bowel Sounds, Soft Musculoskeletal: Yes: Back Pain Extremities: Yes: WNL Edema: No Peripheral Pulses WNL: Yes Neurological: Yes: Alert, Oriented Psychiatric: Yes: Alert, Oriented Labs: CBC, BMP 04/13/19 06:36 04/13/19 06:36 Discharge Summary Reason For Visit: PAIN OF LOWER EXTREMITY,AMBULATOTY DYSFUNCTION Current Active Problems Decreased ambulation status (Acute) HTN (hypertension) (Acute) Hyperlipemia (Acute) Hypothyroidism (Acute) Leg pain (Acute) Morbid obesity (Acute) Sciatica of right side (Acute) Condition: Stable - Instructions Referrals: Quan Pichardo MD, FAANS [Staff Physician] - Disposition: HOME - Home Medications Comprehensive Discharge Medication List: Ambulatory Orders Levothyroxine [Synthroid -] 50 mcg PO DAILY 01/15/13 Simvastatin [Zocor -] 20 mg PO HS 01/15/13 Valsartan [Diovan] 160 mg PO DAILY 01/15/13 Pregabalin [Lyrica] 100 mg PO BID 03/05/14 Calcium Carb/Vitamin D3/Vit K1 [Calcium + D Soft Chewable Tab] 1 each PO DAILY 04/11/19 Cyanocobalamin/Folic AC/Vit B6 [Folbic Tablet] 1 each PO DAILY 04/11/19 Cyclobenzaprine HCl 10 mg PO PRN PRN 04/11/19 Ibuprofen/Famotidine [Duexis 800-26.6 mg Tablet] 1 each PO TID 04/11/19 Multivit with Minerals/Lutein [Pub Multivitamin 50 Plus Tab] 1 each PO BID 04/11 Oxycodone HCl 10 mg PO QID 04/11/19 Oxycodone Myristate [Xtampza ER] 18 mg PO BID 04/11/19
[2019-04-15] MEDS: LIDOCAINE 5% TOPICAL PATCH TP SCH (10:15)
[2019-04-15] MEDS: VALSARTAN 160 MG TABLET (UD) PO SCH (10:16)
[2019-04-15] MEDS: CALCIUM 500MG/VIT-D 200 UNITS COMBO TABLET (FP) PO SCH (10:16)
[2019-04-15] MEDS: oxyCODONE HCL 20 MG SUSTAINED ACTING TABLET PO SCH (10:16)
[2019-04-15] MEDS: HEPARIN NA (PORCINE) 5,000 UNITS/ML 1ML VIAL SQ SCH (10:16)
[2019-04-15] MEDS: MULTIVITAMINS THER W-MINERALS COMBO TABLET (FP) PO SCH (10:17)
[2019-04-15] MEDS: CYCLOBENZAPRINE HCL 10 MG TABLET (FP) PO PRN (10:20)
[2019-04-15] MEDS: ACETAMINOPHEN 325 MG TABLET (FP) PO PRN (11:10)
[2019-04-15 15:02] VITALS: BP 118/71; PULSE 95; TEMP 98.1
== END 2019-04-15 15:30 | disposition home or self-care (01) | DRG 552 ==
LOC: JER 21:19 → JERBED 04-12 02:59 → J7W 04-12 06:44
PROVIDERS: ADMIT Family Medicine; ATTEND Family Medicine
DX: M54.16 Radiculopathy, lumbar region (principal); Z68.41 Body mass index [BMI] 40.0-44.9, adult; M54.31 Sciatica, right side; E66.01 Morbid (severe) obesity due to excess calories; I10 Essential (primary) hypertension; E78.5 Hyperlipidemia, unspecified; E03.9 Hypothyroidism, unspecified; G89.29 Other chronic pain
CPT/HCPCS: 36415; 80053; 84443; 85025; 85027; 93970-TC; 97116-GP; 97161-GP; 99282-25; J0131; J1644

== ENCOUNTER 2020-06-01 16:24 | Emergency (ER) | payer OTHER, BC ==
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
[2020-06-01 16:41] VITALS: TEMP 97.9; BMI 39.8
[2020-06-01] MEDS ORDERED: DIPHTH,PERTUSS(ACELL),TET 0.5 ML DISP.SYRIN IM ONE ×2 (16:53→17:24)
[2020-06-01] MEDS ORDERED: ACETAMINOPHEN 500 MG TABLET (FP) PO ONE (16:53)
[2020-06-01] MEDS ORDERED: ACETAMINOPHEN 325 MG TABLET (FP) ONE (17:24)
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
[2020-06-01 20:21] VITALS: BP 100/65; PULSE 71
== END 2020-06-01 20:15 | disposition home or self-care (01) ==
LOC: JER 16:24
PROC: 3E0234Z Introduction of Serum, Toxoid and Vaccine into Muscle, Percutaneous Approach (ICD-10-PCS; principal; 2020-06-01)
DX: M79.602 Pain in left arm (principal)
CPT/HCPCS: 70450-TC; 71045-TC-FY; 72125-TC; 73060-TC-LT-FY; 73070-TC-LT-FY; 73090-TC-LT-FY; 73110-TC-LT-FY; 73130-TC-LT-FY; 90715; 99285-25

== ENCOUNTER 2021-04-18 09:20 | Emergency (ER) | payer BC, OTHER ==
[2021-04-18 09:47] VITALS: BP 101/64; PULSE 81; TEMP 97.9; BMI 40.7
[2021-04-18] MEDS ORDERED: IBUPROFEN 600 MG TABLET (FP) PO ONE ×2 (09:56→10:15)
[2021-04-18] MEDS ORDERED: LIDOCAINE 5% TOPICAL PATCH TP ONE (10:08)
[2021-04-18] MEDS ORDERED: LIDOCAINE 5% TOPICAL PATCH ONE ×2 (10:09→10:15)
[2021-04-18] MEDS ORDERED: BACITRACIN 15 GM TUBE TOPICAL OINTMENT TP ONE (10:39)
[2021-04-18] MEDS ORDERED: BACITRACIN 0.9 GM PACKET ONE (10:41)
== END 2021-04-18 10:57 | disposition home or self-care (01) ==
LOC: JER 09:20
DX: M25.532 Pain in left wrist (principal)
CPT/HCPCS: 73110-TC-LT-FY; 73130-TC-LT-FY; 99284-25